=== PATIENT | male | born 1990 | race Caucasian/White ===

== ENCOUNTER 2016-07-12 10:01 | Emergency (ER) | payer BC ==
[~2016-07-12] VITALS: Ht 188 cm; Wt 101.0 kg
[~2016-07-12 10:01] MED LIST: AMOXICILLIN/CL875 MG PO; AMOXICILLIN500 MG OR; AUGMENTIN875TAB PO; BACTRIM DS1 TAB PO; CEPHALEXIN500 MG PO; FLEXERIL10 MG PO; FLONASE NASAL50 MCG; FLUTICASONE50 MCG; KEFLEX500 MG PO; LORTAB5 PO; NAPROXEN500 MG PO; NO; NO HOME MEDS; PERCOCET 5/325M1 TAB PO; PREDNISONE20 MG PO; ZPAK OR; ZYRTEC10 M5 PO; ZYRTEC10 MG PO
[2016-07-12 11:10] LABS: HEMATOCRIT 52.2 % (39.0-50.0); HEMOGLOBIN 18.7 g/dl (14.0-18.0); IMMATURE GRANULOCYTES 0.2 % (0.0-1.0); MEAN CELL VOLUME 94.7 fL CALC (80.0-100.0); MEAN CORPUSCULAR HGB 33.9 pG CALC (26.0-32.0); MEAN CORPUSCULAR HGB CONC 35.8 g/L CALC (32.0-36.0); NEUT# 4.13 thou/uL (1.82-7.42); RED BLOOD COUNT 5.51 mill/uL (4.70-6.10); RED CELL DISTRI WIDTH 11.5 % (11.5-15.5)
[2016-07-12 11:16] LABS: ALKALINE PHOSPHATASE 54 u/l (38-126); AMYLASE 56 u/l (30-110); ANION GAP 18 (6-22 (CALC)); BILIRUBIN, TOTAL 1.2 mg/dL (0.0-1.4); BUN 8 mg/dL (9-20); BUN/CREATININE RATIO 10 (12-20 (CALC)); CALCIUM 10.5 mg/dL (8.4-10.2); CARBON DIOXIDE 24 mmol/l (22-30); CHLORIDE 103 mmol/l (95-108); CREATININE 0.8 mg/dL (0.7-1.3); GFR > 60 ML/MIN (>=60 (CALC)); GFR FOR AFR.AMER. > 60 ML/MIN (>=60 (CALC)); GLUCOSE 103 mg/dL (75-110); LIPASE 112 u/l (23-300); POTASSIUM 4.2 mmol/l (3.5-5.1); SGOT/AST 98 u/l (17-59); SGPT/ALT 125 u/l (21-72); SODIUM 140 mmol/l (137-146); TOTAL PROTEIN 9.1 g/dL (6.3-8.2)
[2016-07-12 12:12] LABS: URINE BLOOD DIPSTICK NEGATIVE (NEGATIVE); URINE CLARITY CLEAR; URINE COLOR YELLOW; URINE GLUCOSE - DIPSTICK NEGATIVE (NEGATIVE); URINE KETONE TRACE mg/dL (NEGATIVE); URINE LEUK ESTERASE NEGATIVE (NEGATIVE); URINE NITRITE - DIPSTICK NEGATIVE (Negative); URINE PH 6.5 (4.5-8.0); URINE PROTEIN - DIPSTICK TRACE mg/dL (NEG-TRACE); URINE UROBILINOGEN - DIPSTICK 0.2 E.U./dL (0.2)
[2016-07-12 12:14] LABS: URINE BILIRUBIN - DIPSTICK SMALL (NEGATIVE)
[2016-07-12] MEDS ORDERED: ZOFRAN ODT4 MG PO (12:34)
[2016-07-12] MEDS ORDERED: LOMOTIL2.5 MG PO (12:34)
[2016-07-12 12:59] VITALS: BP 169/117
== END 2016-07-12 13:10 | disposition home or self-care (01) | DRG 392 ==
LOC: ED 10:01
PROVIDERS: Emergency Medicine
DX: K52.9 Noninfective gastroenteritis and colitis, unspecified (principal); F17.200 Nicotine dependence, unspecified, uncomplicated